=== PATIENT | female | born 1970 | race Caucasian/White ===

== ENCOUNTER 2018-12-21 20:04 | Emergency (ER) | payer BC ==
[~2018-12-21] VITALS: Ht 154.9 cm; Wt 49.4 kg
[2018-12-21 20:12] VITALS: BP 137/79
--- NOTE | 2018-12-21 20:18 | NUR ---
PT AMBULATED TO ER BED 02
--- NOTE | 2018-12-21 20:45 | NUR ---
PT BIB FAMILY MEMBER TO ER WITH C/O RT SHOULDER PAIN AFTER FALLING DURING A EXERCISE ON HER RT SHOULDER. PAIN 8/10 TO TOUCH, HAS SLIGHT SMALL BUMP ON THE RT CLAVICLE AREA. GAURDING. HURTS WITH MOVEMET OF RT SHOULDER. +CMS TO EXTREMEITY. PT AAOX4, NO LOCC AT THE TIEM OF EVENT. DENIES ANY MEDICAL HX, DENIES AND ALLERGIC TO MEDICATION. ER MD TO SEE THE PT.
[2018-12-21] MEDS ORDERED: KETOROLAC 60 MG/2 ML VIAL IM ONE (20:55)
--- NOTE | 2018-12-21 21:04 | NUR ---
PT REFUSED TORADOL IM DESPITE EDUCATION, PT STATED THAT SHE WILL TAKE MOTRIN PO AT HOME. DR LOYOLA MADE AWARE
[2018-12-21 21:19] VITALS: BP 135/77
== END 2018-12-21 21:11 | disposition home or self-care (01) ==
LOC: MED 20:04
DX: S42.021A Displaced fracture of shaft of right clavicle, initial encounter for closed fracture (principal); W19.XXXA Unspecified fall, initial encounter; Y93.89 Activity, other specified; Y92.89 Other specified places as the place of occurrence of the external cause; Y99.8 Other external cause status
CPT/HCPCS: 73030; 81002; 81025; 99283; Q0092; J1885